=== PATIENT | male | born 1945 | race Caucasian/White ===

== ENCOUNTER 2019-01-31 15:58 | Inpatient (IN) ==
[2019-01-31] MEDS ORDERED: Ondansetron ODT 4 MG TAB.RAPDIS SL PRN (17:22)
[2019-01-31] MEDS ORDERED: Mag Hydrox/Al Hydrox/Simeth 30 ML UDC PO PRN (17:24)
[2019-01-31] MEDS: Budesonide/Formoterol 160/4.5 1 PUFF INH IH PRN (22:19)
[2019-02-01 05:07] LABS: Basophils # 0.1 K/mcL (0.0-0.2); Basophils % 0.6 %; Eosinophils # 0.3 K/mcL (0.0-0.6); Eosinophils % 3.3 %; Hematocrit 34.4 % (37.5-50.1); Immature Granulocytes % 1.3 % (0-4); Lymphocytes # 1.9 K/mcL (0.6-4.6); Lymphocytes % 19.4 %; Mean Corpuscular Hemoglobin 29.6 pg (28.0-33.3); Mean Corpuscular Volume 92.7 fL (83.0-100.0); Monocytes # 1.1 K/mcL (0.0-1.3); Monocytes % 11.2 %; Neutrophils # 6.2 K/mcL (1.6-8.9); Platelet Count 198 K/mcL (140-400); Red Blood Count 3.71 M/mcL (4.19-5.50); Red Cell Distribution Width 15.5 % (11.5-14.5); Segmented Neutrophils % 64.2 %; White Blood Count 9.6 K/mcL (4.3-11.1)
[2019-02-01 05:28] LABS: Alanine Aminotransferase 21 Units/L (7-52); Albumin 2.4 g/dL (3.5-5.7); Albumin/Globulin Ratio 0.9 (1.1-2.2); Alkaline Phosphatase 52 Units/L (34-104); Aspartate Amino Transferase 25 Units/L (13-39); BUN/Creatinine Ratio 29 (6-26); Bilirubin,Total 0.5 mg/dL (0.3-1.0); Blood Urea Nitrogen 23 mg/dL (8-23); Calcium 8.2 mg/dL (8.6-10.3); Carbon Dioxide 27 mEq/L (23-29); Chloride 110 mEq/L (98-107); Globulin 2.7 g/dL (2.4-3.5); Glucose 109 mg/dL (70-105); Osmolality,Calculated 298 (280-300); Potassium 3.7 mEq/L (3.5-5.1); Sodium 142 mEq/L (136-145); Total Protein 5.1 g/dL (6.4-8.9); eGFR For African Americans > 60 (> 60); eGFR For Non-African Americans > 60 (> 60)
[2019-02-01] MEDS: Vitamin B Complex/Vit C/Vit E 1 EACH TABLET PO SCH (08:51)
[2019-02-01] MEDS: Diltiazem CD (24hr) 180 MG CAPSULE PO SCH (08:51)
[2019-02-01] MEDS: Aspirin Enteric Coated 81 MG Tablet PO SCH (08:51)
[2019-02-01] MEDS: Cholecalciferol (D-3) 1,000 UNIT (25MCG) TABLET PO SCH (08:52)
[2019-02-01] MEDS: Budesonide/Formoterol 160/4.5 1 PUFF INH IH PRN ×2 (09:04→20:46)
[2019-02-01] MEDS: *HR* LORazepam 0.5 MG TABLET PO PRN (09:07)
[2019-02-01] MEDS: *HR* Enoxaparin 40 MG/0.4 ML SYRINGE SQ SCH (15:52)
[2019-02-02] MEDS: *HR* Enoxaparin 40 MG/0.4 ML SYRINGE SQ SCH (06:47)
[2019-02-02] MEDS: *HR* LORazepam 0.5 MG TABLET PO PRN (06:47)
[2019-02-02] MEDS: Diltiazem CD (24hr) 180 MG CAPSULE PO SCH (09:24)
[2019-02-02] MEDS: Vitamin B Complex/Vit C/Vit E 1 EACH TABLET PO SCH (09:24)
[2019-02-02] MEDS: Aspirin Enteric Coated 81 MG Tablet PO SCH (09:24)
[2019-02-02] MEDS: Cholecalciferol (D-3) 1,000 UNIT (25MCG) TABLET PO SCH (09:24)
[2019-02-02] MEDS ORDERED: *HR* LORazepam 0.5 MG TABLET PO PRN (12:01)
[2019-02-02] MEDS: Budesonide/Formoterol 160/4.5 1 PUFF INH IH PRN (18:25)
[2019-02-03] MEDS: *HR* Enoxaparin 40 MG/0.4 ML SYRINGE SQ SCH (06:09)
[2019-02-03] MEDS: Cholecalciferol (D-3) 1,000 UNIT (25MCG) TABLET PO SCH (09:24)
[2019-02-03] MEDS: Aspirin Enteric Coated 81 MG Tablet PO SCH (09:24)
[2019-02-03] MEDS: Diltiazem CD (24hr) 180 MG CAPSULE PO SCH (09:24)
[2019-02-03] MEDS: Vitamin B Complex/Vit C/Vit E 1 EACH TABLET PO SCH (09:24)
[2019-02-03] MEDS: Budesonide/Formoterol 160/4.5 1 PUFF INH IH PRN ×2 (09:29→19:34)
[2019-02-04] MEDS: *HR* Enoxaparin 40 MG/0.4 ML SYRINGE SQ SCH (06:08)
[2019-02-04 08:01] LABS: Hematocrit 31.1 % (37.5-50.1); Hemoglobin 10.3 g/dL (12.9-16.9); Mean Corpuscular HGB Conc 33.1 g/dL (31.6-35.5); Mean Corpuscular Hemoglobin 30.4 pg (28.0-33.3); Mean Corpuscular Volume 91.7 fL (83.0-100.0); Mean Platelet Volume 10.1 fL (9.4-12.4); Platelet Count 296 K/mcL (140-400); Red Blood Count 3.39 M/mcL (4.19-5.50); Red Cell Distribution Width 15.2 % (11.5-14.5); White Blood Count 8.3 K/mcL (4.3-11.1)
[2019-02-04 08:16] LABS: Alanine Aminotransferase 21 Units/L (7-52); Albumin 2.4 g/dL (3.5-5.7); Albumin/Globulin Ratio 0.8 (1.1-2.2); Alkaline Phosphatase 58 Units/L (34-104); Aspartate Amino Transferase 21 Units/L (13-39); BUN/Creatinine Ratio 28 (6-26); Bilirubin,Total 0.3 mg/dL (0.3-1.0); Blood Urea Nitrogen 13 mg/dL (8-23); Calcium 7.7 mg/dL (8.6-10.3); Carbon Dioxide 28 mEq/L (23-29); Chloride 101 mEq/L (98-107); Globulin 3.2 g/dL (2.4-3.5); Glucose 106 mg/dL (70-105); Osmolality,Calculated 281 (280-300); Sodium 135 mEq/L (136-145); Total Protein 5.6 g/dL (6.4-8.9); eGFR For African Americans > 60 (> 60); eGFR For Non-African Americans > 60 (> 60)
[2019-02-04] MEDS: Cholecalciferol (D-3) 1,000 UNIT (25MCG) TABLET PO SCH (08:48)
[2019-02-04] MEDS: Diltiazem CD (24hr) 180 MG CAPSULE PO SCH (08:48)
[2019-02-04] MEDS: Vitamin B Complex/Vit C/Vit E 1 EACH TABLET PO SCH (08:48)
[2019-02-04] MEDS: Aspirin Enteric Coated 81 MG Tablet PO SCH (08:48)
[2019-02-04] MEDS: Budesonide/Formoterol 160/4.5 1 PUFF INH IH PRN ×2 (09:02→20:04)
[2019-02-05] MEDS: *HR* Enoxaparin 40 MG/0.4 ML SYRINGE SQ SCH (06:41)
[2019-02-05] MEDS: Diltiazem CD (24hr) 180 MG CAPSULE PO SCH (08:20)
[2019-02-05] MEDS: Aspirin Enteric Coated 81 MG Tablet PO SCH (08:20)
[2019-02-05] MEDS: Cholecalciferol (D-3) 1,000 UNIT (25MCG) TABLET PO SCH (08:20)
[2019-02-05] MEDS: Vitamin B Complex/Vit C/Vit E 1 EACH TABLET PO SCH (08:20)
[2019-02-05] MEDS: Budesonide/Formoterol 160/4.5 1 PUFF INH IH PRN ×3 (08:22→20:20)
[2019-02-05] MEDS: Acetaminophen 325 MG TABLET PO PRN (12:38)
[2019-02-06] MEDS: *HR* Enoxaparin 40 MG/0.4 ML SYRINGE SQ SCH (06:27)
[2019-02-06] MEDS: Diltiazem CD (24hr) 180 MG CAPSULE PO SCH (09:13)
[2019-02-06] MEDS: Aspirin Enteric Coated 81 MG Tablet PO SCH (09:13)
[2019-02-06] MEDS: Vitamin B Complex/Vit C/Vit E 1 EACH TABLET PO SCH (09:13)
[2019-02-06] MEDS: Cholecalciferol (D-3) 1,000 UNIT (25MCG) TABLET PO SCH (09:14)
[2019-02-06] MEDS: Budesonide/Formoterol 160/4.5 1 PUFF INH IH PRN (11:23)
[2019-02-07] MEDS: *HR* Enoxaparin 40 MG/0.4 ML SYRINGE SQ SCH (05:28)
[2019-02-07] MEDS: Vitamin B Complex/Vit C/Vit E 1 EACH TABLET PO SCH (08:12)
[2019-02-07] MEDS: Diltiazem CD (24hr) 180 MG CAPSULE PO SCH (08:12)
[2019-02-07] MEDS: Cholecalciferol (D-3) 1,000 UNIT (25MCG) TABLET PO SCH (08:13)
[2019-02-07] MEDS: Aspirin Enteric Coated 81 MG Tablet PO SCH (08:13)
[2019-02-07] MEDS: Ipratropium/Albuterol Neb 3 ML IH SCH (21:25)
[2019-02-07] MEDS: Sucralfate 1 GM TABLET PO SCH (21:26)
[2019-02-07] MEDS: Famotidine 20 MG TABLET PO SCH (21:26)
[2019-02-07] MEDS: Acetaminophen 325 MG TABLET PO PRN (21:26)
[2019-02-08 00:46] LABS: Bilirubin,Urine Negative (Negative); Blood,Urine Trace-lysed (Negative); Clarity,Urine Clear (Clear); Color,Urine Yellow (Yellow); Glucose,Urine (UA) Normal (Normal); Ketones,Urine Negative (Negative); Leukocyte Esterase,Urine Negative (Negative); Nitrite,Urine Negative (Negative); PH,Urine 6.5 pH Units (5.0-8.0); Protein,Urine Negative (Neg-Trace); Urobilinogen,Urine Normal (Normal)
[2019-02-08 01:27] LABS: Bacteria,Urine Few per hpf (None-Few); RBC,Urine 0-3 per hpf (0-3); Squamous Epithelial Cell,Urine Few per lpf (None-Few); WBC,Urine 0-3 per hpf (0-3)
[2019-02-08] MEDS: *HR* Enoxaparin 40 MG/0.4 ML SYRINGE SQ SCH (05:12)
[2019-02-08] MEDS: Acetaminophen 325 MG TABLET PO PRN ×2 (05:12→21:28)
[2019-02-08 05:16] LABS: Hematocrit 31.6 % (37.5-50.1); Hemoglobin 10.5 g/dL (12.9-16.9); Mean Corpuscular HGB Conc 33.2 g/dL (31.6-35.5); Mean Corpuscular Hemoglobin 30.4 pg (28.0-33.3); Mean Corpuscular Volume 91.6 fL (83.0-100.0); Platelet Count 421 K/mcL (140-400); Red Blood Count 3.45 M/mcL (4.19-5.50); White Blood Count 7.5 K/mcL (4.3-11.1)
[2019-02-08 05:34] LABS: BUN/Creatinine Ratio 24 (6-26); Blood Urea Nitrogen 11 mg/dL (8-23); Calcium 8.5 mg/dL (8.6-10.3); Carbon Dioxide 31 mEq/L (23-29); Chloride 102 mEq/L (98-107); Glucose 91 mg/dL (70-105); Osmolality,Calculated 285 (280-300); Potassium 3.8 mEq/L (3.5-5.1); Sodium 138 mEq/L (136-145); eGFR For African Americans > 60 (> 60); eGFR For Non-African Americans > 60 (> 60)
[2019-02-08] MEDS: Diltiazem CD (24hr) 180 MG CAPSULE PO SCH (09:01)
[2019-02-08] MEDS: Cholecalciferol (D-3) 1,000 UNIT (25MCG) TABLET PO SCH (09:01)
[2019-02-08] MEDS: Sucralfate 1 GM TABLET PO SCH ×4 (09:01→21:28)
[2019-02-08] MEDS: Vitamin B Complex/Vit C/Vit E 1 EACH TABLET PO SCH (09:01)
[2019-02-08] MEDS: Famotidine 20 MG TABLET PO SCH ×2 (09:02→21:28)
[2019-02-08] MEDS: Aspirin Enteric Coated 81 MG Tablet PO SCH (09:02)
[2019-02-08] MEDS: Ipratropium/Albuterol Neb 3 ML IH SCH ×2 (09:26→21:28)
[2019-02-08 09:30] LABS: % Iron Saturation 13 % (20-55); Iron 29 mcg/dL (65-175); Transferrin 164 mg/dL (203-362)
[2019-02-08] MEDS: Budesonide/Formoterol 160/4.5 1 PUFF INH IH PRN (21:27)
[2019-02-09] MEDS: Sucralfate 1 GM TABLET PO SCH ×4 (06:09→21:14)
[2019-02-09] MEDS: Acetaminophen 325 MG TABLET PO PRN (06:09)
[2019-02-09] MEDS: *HR* Enoxaparin 40 MG/0.4 ML SYRINGE SQ SCH (06:09)
[2019-02-09] MEDS: Vitamin B Complex/Vit C/Vit E 1 EACH TABLET PO SCH (08:38)
[2019-02-09] MEDS: Diltiazem CD (24hr) 180 MG CAPSULE PO SCH (08:38)
[2019-02-09] MEDS: Aspirin Enteric Coated 81 MG Tablet PO SCH (08:39)
[2019-02-09] MEDS: Famotidine 20 MG TABLET PO SCH ×2 (08:39→21:13)
[2019-02-09] MEDS: Cholecalciferol (D-3) 1,000 UNIT (25MCG) TABLET PO SCH (08:39)
[2019-02-09] MEDS: Budesonide/Formoterol 160/4.5 1 PUFF INH IH PRN (11:21)
[2019-02-09] MEDS: Ipratropium/Albuterol Neb 3 ML IH SCH ×2 (11:22→22:26)
[2019-02-09] MEDS ORDERED: Furosemide 40 MG in 0.9 % Sodium Chloride 50 ML IV ONE (17:36)
[2019-02-09] MEDS ORDERED: Furosemide 40 MG/4 ML VIAL IVP ONE (18:15)
[2019-02-10] MEDS: *HR* Enoxaparin 40 MG/0.4 ML SYRINGE SQ SCH (06:34)
[2019-02-10] MEDS: Sucralfate 1 GM TABLET PO SCH ×3 (06:35→22:20)
[2019-02-10] MEDS: Aspirin Enteric Coated 81 MG Tablet PO SCH (08:30)
[2019-02-10] MEDS: Acetaminophen 325 MG TABLET PO PRN ×2 (08:30→22:20)
[2019-02-10] MEDS: Diltiazem CD (24hr) 180 MG CAPSULE PO SCH (08:31)
[2019-02-10] MEDS: Famotidine 20 MG TABLET PO SCH ×2 (08:31→22:20)
[2019-02-10] MEDS: Vitamin B Complex/Vit C/Vit E 1 EACH TABLET PO SCH (08:31)
[2019-02-10] MEDS: Cholecalciferol (D-3) 1,000 UNIT (25MCG) TABLET PO SCH (08:31)
[2019-02-10] MEDS: Budesonide/Formoterol 160/4.5 1 PUFF INH IH PRN ×2 (11:56→22:18)
[2019-02-10] MEDS: Ipratropium/Albuterol Neb 3 ML IH SCH ×2 (11:56→22:06)
[2019-02-11] MEDS: Sucralfate 1 GM TABLET PO SCH ×5 (04:50→21:08)
[2019-02-11] MEDS: *HR* Enoxaparin 40 MG/0.4 ML SYRINGE SQ SCH (04:50)
[2019-02-11 06:51] LABS: BUN/Creatinine Ratio 19 (6-26); Blood Urea Nitrogen 9 mg/dL (8-23); Calcium 8.6 mg/dL (8.6-10.3); Carbon Dioxide 32 mEq/L (23-29); Chloride 102 mEq/L (98-107); Glucose 100 mg/dL (70-105); Osmolality,Calculated 287 (280-300); Potassium 4.1 mEq/L (3.5-5.1); Sodium 139 mEq/L (136-145); eGFR For African Americans > 60 (> 60); eGFR For Non-African Americans > 60 (> 60)
[2019-02-11] MEDS ORDERED: Iron Sucrose Complex 200 MG in 0.9 % Sodium Chloride 100 ML IVPB SCH (09:00)
[2019-02-11] MEDS: Vitamin B Complex/Vit C/Vit E 1 EACH TABLET PO SCH (10:06)
[2019-02-11] MEDS: Aspirin Enteric Coated 81 MG Tablet PO SCH (10:10)
[2019-02-11] MEDS: Famotidine 20 MG TABLET PO SCH ×2 (10:11→21:08)
[2019-02-11] MEDS: Cholecalciferol (D-3) 1,000 UNIT (25MCG) TABLET PO SCH (10:11)
[2019-02-11] MEDS: Cyanocobalamin (B-12) 1,000 MCG/ML VIAL SQ SCH (10:12)
[2019-02-11] MEDS: Diltiazem CD (24hr) 180 MG CAPSULE PO SCH (10:12)
[2019-02-11] MEDS: Ascorbic Acid 500 MG TABLET PO SCH ×2 (10:12→21:08)
[2019-02-11] MEDS: Budesonide/Formoterol 160/4.5 1 PUFF INH IH PRN (11:22)
[2019-02-11] MEDS: Ipratropium/Albuterol Neb 3 ML IH SCH ×2 (11:22→22:27)
[2019-02-11] MEDS: cephALEXin 500 MG CAPSULE PO SCH ×3 (13:32→21:08)
[2019-02-11] MEDS: Iron Sucrose Complex 200 MG in 0.9 % Sodium Chloride 100 ML IVPB SCH (21:09)
[2019-02-11] MEDS: Acetaminophen 325 MG TABLET PO PRN (21:09)
[2019-02-12] MEDS: Acetaminophen 325 MG TABLET PO PRN (05:41)
[2019-02-12] MEDS: Sucralfate 1 GM TABLET PO SCH ×4 (05:41→20:52)
[2019-02-12] MEDS: *HR* Enoxaparin 40 MG/0.4 ML SYRINGE SQ SCH (05:41)
[2019-02-12] MEDS: cephALEXin 500 MG CAPSULE PO SCH ×4 (08:49→20:53)
[2019-02-12] MEDS: Famotidine 20 MG TABLET PO SCH ×2 (08:49→20:53)
[2019-02-12] MEDS: Cholecalciferol (D-3) 1,000 UNIT (25MCG) TABLET PO SCH (08:49)
[2019-02-12] MEDS: Cyanocobalamin (B-12) 1,000 MCG/ML VIAL SQ SCH (08:50)
[2019-02-12] MEDS: Vitamin B Complex/Vit C/Vit E 1 EACH TABLET PO SCH (08:50)
[2019-02-12] MEDS: Aspirin Enteric Coated 81 MG Tablet PO SCH (08:50)
[2019-02-12] MEDS: Diltiazem CD (24hr) 180 MG CAPSULE PO SCH (08:50)
[2019-02-12] MEDS: Ascorbic Acid 500 MG TABLET PO SCH ×2 (08:50→20:53)
[2019-02-12] MEDS: Ipratropium/Albuterol Neb 3 ML IH SCH ×2 (09:07→20:54)
[2019-02-12] MEDS: Budesonide/Formoterol 160/4.5 1 PUFF INH IH PRN (09:09)
[2019-02-12] MEDS: Methyl Salicylate/Menthol 57 APPL/57 GM TUBE TP SCH ×2 (16:13→20:53)
[2019-02-12] MEDS: Lactobacillus 1 EACH CAP.SPRINK PO SCH (20:52)
[2019-02-12] MEDS: Mirtazapine 15 MG TABLET PO SCH (20:53)
[2019-02-12] MEDS: Iron Sucrose Complex 200 MG in 0.9 % Sodium Chloride 100 ML IVPB SCH (20:53)
[2019-02-12] MEDS: Nystatin Ointment 15 GM TUBE TP SCH (20:54)
[2019-02-13] MEDS: *HR* Enoxaparin 40 MG/0.4 ML SYRINGE SQ SCH (05:16)
[2019-02-13] MEDS: Sucralfate 1 GM TABLET PO SCH ×4 (05:21→20:13)
[2019-02-13] MEDS: Famotidine 20 MG TABLET PO SCH ×2 (08:39→20:14)
[2019-02-13] MEDS: Aspirin Enteric Coated 81 MG Tablet PO SCH (08:39)
[2019-02-13] MEDS: cephALEXin 500 MG CAPSULE PO SCH ×4 (08:39→20:14)
[2019-02-13] MEDS: Vitamin B Complex/Vit C/Vit E 1 EACH TABLET PO SCH (08:39)
[2019-02-13] MEDS: Ascorbic Acid 500 MG TABLET PO SCH ×2 (08:39→20:13)
[2019-02-13] MEDS: Lactobacillus 1 EACH CAP.SPRINK PO SCH ×2 (08:39→20:14)
[2019-02-13] MEDS: Diltiazem CD (24hr) 180 MG CAPSULE PO SCH (08:39)
[2019-02-13] MEDS: Cholecalciferol (D-3) 1,000 UNIT (25MCG) TABLET PO SCH (08:39)
[2019-02-13] MEDS: Cyanocobalamin (B-12) 1,000 MCG/ML VIAL SQ SCH (08:40)
[2019-02-13] MEDS: Nystatin Ointment 15 GM TUBE TP SCH ×3 (08:40→21:29)
[2019-02-13] MEDS: Methyl Salicylate/Menthol 57 APPL/57 GM TUBE TP SCH ×3 (08:40→21:28)
[2019-02-13] MEDS: Ipratropium/Albuterol Neb 3 ML IH SCH ×2 (09:35→20:46)
[2019-02-13] MEDS: Mirtazapine 15 MG TABLET PO SCH (20:13)
[2019-02-13] MEDS: Acetaminophen 325 MG TABLET PO PRN (20:13)
[2019-02-13] MEDS: Iron Sucrose Complex 200 MG in 0.9 % Sodium Chloride 100 ML IVPB SCH (20:15)
[2019-02-13] MEDS: Budesonide/Formoterol 160/4.5 1 PUFF INH IH PRN (21:26)
[2019-02-14] MEDS: *HR* Enoxaparin 40 MG/0.4 ML SYRINGE SQ SCH (06:13)
[2019-02-14] MEDS: Sucralfate 1 GM TABLET PO SCH ×4 (06:13→20:42)
[2019-02-14] MEDS: Lactobacillus 1 EACH CAP.SPRINK PO SCH ×2 (07:52→20:42)
[2019-02-14] MEDS: Cholecalciferol (D-3) 1,000 UNIT (25MCG) TABLET PO SCH (07:52)
[2019-02-14] MEDS: cephALEXin 500 MG CAPSULE PO SCH ×4 (07:52→20:42)
[2019-02-14] MEDS: Diltiazem CD (24hr) 180 MG CAPSULE PO SCH (07:52)
[2019-02-14] MEDS: Famotidine 20 MG TABLET PO SCH ×2 (07:52→20:41)
[2019-02-14] MEDS: Vitamin B Complex/Vit C/Vit E 1 EACH TABLET PO SCH (07:52)
[2019-02-14] MEDS: Aspirin Enteric Coated 81 MG Tablet PO SCH (07:53)
[2019-02-14] MEDS: Ascorbic Acid 500 MG TABLET PO SCH ×2 (07:53→20:42)
[2019-02-14] MEDS: Cyanocobalamin (B-12) 1,000 MCG/ML VIAL SQ SCH (07:53)
[2019-02-14] MEDS: Nystatin Ointment 15 GM TUBE TP SCH ×2 (07:57→20:44)
[2019-02-14] MEDS: Methyl Salicylate/Menthol 57 APPL/57 GM TUBE TP SCH ×2 (07:57→20:44)
[2019-02-14] MEDS: Budesonide/Formoterol 160/4.5 1 PUFF INH IH PRN ×2 (11:40→20:44)
[2019-02-14] MEDS: Ipratropium/Albuterol Neb 3 ML IH SCH ×2 (11:41→20:51)
[2019-02-14] MEDS: Mirtazapine 15 MG TABLET PO SCH (20:41)
[2019-02-14] MEDS: Iron Sucrose Complex 200 MG in 0.9 % Sodium Chloride 100 ML IVPB SCH (20:43)
[2019-02-15] MEDS: *HR* Enoxaparin 40 MG/0.4 ML SYRINGE SQ SCH (06:20)
[2019-02-15] MEDS: Sucralfate 1 GM TABLET PO SCH ×4 (06:20→20:45)
[2019-02-15] MEDS: Ipratropium/Albuterol Neb 3 ML IH SCH ×2 (08:22→21:39)
[2019-02-15] MEDS: Aspirin Enteric Coated 81 MG Tablet PO SCH (08:48)
[2019-02-15] MEDS: Ascorbic Acid 500 MG TABLET PO SCH ×2 (08:49→20:45)
[2019-02-15] MEDS: Vitamin B Complex/Vit C/Vit E 1 EACH TABLET PO SCH (08:49)
[2019-02-15] MEDS: Lactobacillus 1 EACH CAP.SPRINK PO SCH ×2 (08:49→20:45)
[2019-02-15] MEDS: Diltiazem CD (24hr) 180 MG CAPSULE PO SCH (08:49)
[2019-02-15] MEDS: Cholecalciferol (D-3) 1,000 UNIT (25MCG) TABLET PO SCH (08:49)
[2019-02-15] MEDS: cephALEXin 500 MG CAPSULE PO SCH ×4 (08:49→20:45)
[2019-02-15] MEDS: Famotidine 20 MG TABLET PO SCH ×2 (08:49→20:45)
[2019-02-15] MEDS: Cyanocobalamin (B-12) 1,000 MCG/ML VIAL SQ SCH (08:58)
[2019-02-15] MEDS: Nystatin Ointment 15 GM TUBE TP SCH ×2 (09:01→20:50)
[2019-02-15] MEDS: Methyl Salicylate/Menthol 57 APPL/57 GM TUBE TP SCH ×2 (09:01→20:50)
[2019-02-15] MEDS: Acetaminophen 325 MG TABLET PO PRN (11:07)
[2019-02-15] MEDS: Iron Sucrose Complex 200 MG in 0.9 % Sodium Chloride 100 ML IVPB SCH (20:50)
[2019-02-15] MEDS: Mirtazapine 15 MG TABLET PO SCH (20:50)
[2019-02-15] MEDS: Budesonide/Formoterol 160/4.5 1 PUFF INH IH PRN (21:39)
[2019-02-16] MEDS: Sucralfate 1 GM TABLET PO SCH ×4 (06:48→20:43)
[2019-02-16] MEDS: *HR* Enoxaparin 40 MG/0.4 ML SYRINGE SQ SCH (06:48)
[2019-02-16] MEDS: Cyanocobalamin (B-12) 1,000 MCG/ML VIAL SQ SCH (08:38)
[2019-02-16] MEDS: Aspirin Enteric Coated 81 MG Tablet PO SCH (08:40)
[2019-02-16] MEDS: Diltiazem CD (24hr) 180 MG CAPSULE PO SCH (08:41)
[2019-02-16] MEDS: Lactobacillus 1 EACH CAP.SPRINK PO SCH ×2 (08:42→20:41)
[2019-02-16] MEDS: cephALEXin 500 MG CAPSULE PO SCH ×4 (08:42→20:44)
[2019-02-16] MEDS: Vitamin B Complex/Vit C/Vit E 1 EACH TABLET PO SCH (08:42)
[2019-02-16] MEDS: Cholecalciferol (D-3) 1,000 UNIT (25MCG) TABLET PO SCH (08:42)
[2019-02-16] MEDS: Ascorbic Acid 500 MG TABLET PO SCH ×2 (08:42→20:43)
[2019-02-16] MEDS: Famotidine 20 MG TABLET PO SCH ×2 (08:42→20:45)
[2019-02-16] MEDS: Nystatin Ointment 15 GM TUBE TP SCH ×2 (08:46→20:50)
[2019-02-16] MEDS: Methyl Salicylate/Menthol 57 APPL/57 GM TUBE TP SCH ×2 (08:47→20:58)
[2019-02-16] MEDS: Budesonide/Formoterol 160/4.5 1 PUFF INH IH PRN (09:47)
[2019-02-16] MEDS: Ipratropium/Albuterol Neb 3 ML IH SCH (09:50)
[2019-02-16 11:10] LABS: Hematocrit 36.2 % (37.5-50.1); Hemoglobin 11.8 g/dL (12.9-16.9); Mean Corpuscular HGB Conc 32.6 g/dL (31.6-35.5); Mean Corpuscular Hemoglobin 30.3 pg (28.0-33.3); Mean Corpuscular Volume 92.8 fL (83.0-100.0); Mean Platelet Volume 8.4 fL (9.4-12.4); Platelet Count 344 K/mcL (140-400); Red Cell Distribution Width 15.4 % (11.5-14.5); White Blood Count 8.4 K/mcL (4.3-11.1)
[2019-02-16 11:25] LABS: BUN/Creatinine Ratio 20 (6-26); Blood Urea Nitrogen 12 mg/dL (8-23); Calcium 9.1 mg/dL (8.6-10.3); Carbon Dioxide 29 mEq/L (23-29); Chloride 103 mEq/L (98-107); Glucose 118 mg/dL (70-105); Osmolality,Calculated 291 (280-300); Potassium 3.9 mEq/L (3.5-5.1); Sodium 140 mEq/L (136-145); Uric Acid 5.7 mg/dL (2.3-7.6); eGFR For African Americans > 60 (> 60); eGFR For Non-African Americans > 60 (> 60)
[2019-02-16] MEDS: *HR* LORazepam 0.5 MG TABLET PO PRN (16:23)
[2019-02-16 18:39] LABS: C-Reactive Protein 28 mg/L (Less than 10)
[2019-02-16] MEDS: Mirtazapine 15 MG TABLET PO SCH (20:42)
[2019-02-16] MEDS: Budesonide/Formoterol 160/4.5 1 PUFF INH IH SCH (20:47)
[2019-02-16] MEDS: Iron Sucrose Complex 200 MG in 0.9 % Sodium Chloride 100 ML IVPB SCH (20:55)
[2019-02-17] MEDS: *HR* Enoxaparin 40 MG/0.4 ML SYRINGE SQ SCH (05:45)
[2019-02-17] MEDS: Ipratropium/Albuterol Neb 3 ML IH PRN (09:18)
[2019-02-17] MEDS: Budesonide/Formoterol 160/4.5 1 PUFF INH IH SCH ×2 (09:18→20:23)
[2019-02-17] MEDS: Vitamin B Complex/Vit C/Vit E 1 EACH TABLET PO SCH (10:09)
[2019-02-17] MEDS: Diltiazem CD (24hr) 180 MG CAPSULE PO SCH (10:10)
[2019-02-17] MEDS: Cholecalciferol (D-3) 1,000 UNIT (25MCG) TABLET PO SCH (10:10)
[2019-02-17] MEDS: cephALEXin 500 MG CAPSULE PO SCH ×4 (10:10→20:20)
[2019-02-17] MEDS: Aspirin Enteric Coated 81 MG Tablet PO SCH (10:10)
[2019-02-17] MEDS: Lactobacillus 1 EACH CAP.SPRINK PO SCH ×2 (10:10→20:20)
[2019-02-17] MEDS: Ascorbic Acid 500 MG TABLET PO SCH ×2 (10:10→20:22)
[2019-02-17] MEDS: Famotidine 20 MG TABLET PO SCH ×2 (10:10→20:21)
[2019-02-17] MEDS: Cyanocobalamin (B-12) 1,000 MCG/ML VIAL SQ SCH (10:11)
[2019-02-17] MEDS: Sucralfate 1 GM TABLET PO SCH (10:11)
[2019-02-17] MEDS: Nystatin Ointment 15 GM TUBE TP SCH ×2 (10:18→20:21)
[2019-02-17] MEDS: Methyl Salicylate/Menthol 57 APPL/57 GM TUBE TP SCH ×2 (10:18→20:19)
[2019-02-17] MEDS: Iron Sucrose Complex 200 MG in 0.9 % Sodium Chloride 100 ML IVPB SCH (20:18)
[2019-02-17] MEDS: Mirtazapine 15 MG TABLET PO SCH (20:21)
[2019-02-18] MEDS: *HR* Enoxaparin 40 MG/0.4 ML SYRINGE SQ SCH (05:04)
[2019-02-18] MEDS: Budesonide/Formoterol 160/4.5 1 PUFF INH IH SCH ×2 (09:01→22:09)
[2019-02-18] MEDS ORDERED: 0.9 % Sodium Chloride 500 ML IVC ONE (09:13)
[2019-02-18] MEDS ORDERED: 0.9 % Sodium Chloride 500 ML ONE (09:17)
[2019-02-18] MEDS: Famotidine 20 MG TABLET PO SCH ×2 (09:24→21:37)
[2019-02-18] MEDS: Ascorbic Acid 500 MG TABLET PO SCH ×2 (09:24→21:35)
[2019-02-18] MEDS: Diltiazem CD (24hr) 180 MG CAPSULE PO SCH (09:24)
[2019-02-18] MEDS: Vitamin B Complex/Vit C/Vit E 1 EACH TABLET PO SCH (09:24)
[2019-02-18] MEDS: Cyanocobalamin (B-12) 1,000 MCG/ML VIAL SQ SCH (09:25)
[2019-02-18] MEDS: Aspirin Enteric Coated 81 MG Tablet PO SCH (09:25)
[2019-02-18] MEDS: Cholecalciferol (D-3) 1,000 UNIT (25MCG) TABLET PO SCH (09:25)
[2019-02-18] MEDS: Lactobacillus 1 EACH CAP.SPRINK PO SCH ×2 (09:26→21:36)
[2019-02-18] MEDS: Methyl Salicylate/Menthol 57 APPL/57 GM TUBE TP SCH ×2 (09:26→21:44)
[2019-02-18] MEDS: Nystatin Ointment 15 GM TUBE TP SCH ×2 (09:26→21:44)
[2019-02-18] MEDS: cephALEXin 500 MG CAPSULE PO SCH ×2 (09:26→13:43)
[2019-02-18] MEDS: Mirtazapine 15 MG TABLET PO SCH (21:36)
[2019-02-18] MEDS: Ipratropium/Albuterol Neb 3 ML IH PRN (22:09)
[2019-02-19] MEDS: *HR* Enoxaparin 40 MG/0.4 ML SYRINGE SQ SCH (04:15)
[2019-02-19] MEDS: Cholecalciferol (D-3) 1,000 UNIT (25MCG) TABLET PO SCH (08:46)
[2019-02-19] MEDS: Diltiazem CD (24hr) 180 MG CAPSULE PO SCH (08:46)
[2019-02-19] MEDS: Famotidine 20 MG TABLET PO SCH ×2 (08:46→21:36)
[2019-02-19] MEDS: Aspirin Enteric Coated 81 MG Tablet PO SCH (08:47)
[2019-02-19] MEDS: Vitamin B Complex/Vit C/Vit E 1 EACH TABLET PO SCH (08:47)
[2019-02-19] MEDS: Ascorbic Acid 500 MG TABLET PO SCH ×2 (08:47→21:36)
[2019-02-19] MEDS: Lactobacillus 1 EACH CAP.SPRINK PO SCH ×2 (08:47→21:35)
[2019-02-19] MEDS: Nystatin Ointment 15 GM TUBE TP SCH ×2 (08:49→21:38)
[2019-02-19] MEDS: Methyl Salicylate/Menthol 57 APPL/57 GM TUBE TP SCH ×2 (08:49→21:38)
[2019-02-19] MEDS: Budesonide/Formoterol 160/4.5 1 PUFF INH IH SCH ×2 (11:11→22:17)
[2019-02-19] MEDS: Mirtazapine 15 MG TABLET PO SCH (21:38)
[2019-02-19] MEDS: Ipratropium/Albuterol Neb 3 ML IH PRN (22:14)
[2019-02-20] MEDS: *HR* Enoxaparin 40 MG/0.4 ML SYRINGE SQ SCH (04:42)
[2019-02-20 06:01] LABS: Alanine Aminotransferase 34 Units/L (7-52); Albumin/Globulin Ratio 0.9 (1.1-2.2); Alkaline Phosphatase 63 Units/L (34-104); Aspartate Amino Transferase 24 Units/L (13-39); BUN/Creatinine Ratio 17 (6-26); Bilirubin,Total 0.3 mg/dL (0.3-1.0); Blood Urea Nitrogen 10 mg/dL (8-23); Calcium 8.9 mg/dL (8.6-10.3); Carbon Dioxide 31 mEq/L (23-29); Chloride 104 mEq/L (98-107); Globulin 3.2 g/dL (2.4-3.5); Glucose 95 mg/dL (70-105); Osmolality,Calculated 289 (280-300); Potassium 3.7 mEq/L (3.5-5.1); Sodium 140 mEq/L (136-145); Total Protein 6.2 g/dL (6.4-8.9); eGFR For African Americans > 60 (> 60); eGFR For Non-African Americans > 60 (> 60)
[2019-02-20] MEDS: Ascorbic Acid 500 MG TABLET PO SCH ×2 (07:53→21:00)
[2019-02-20] MEDS: Famotidine 20 MG TABLET PO SCH ×2 (07:53→21:01)
[2019-02-20] MEDS: Lactobacillus 1 EACH CAP.SPRINK PO SCH ×2 (07:53→21:00)
[2019-02-20] MEDS: Aspirin Enteric Coated 81 MG Tablet PO SCH (07:53)
[2019-02-20] MEDS: Diltiazem CD (24hr) 180 MG CAPSULE PO SCH (07:54)
[2019-02-20] MEDS: Cholecalciferol (D-3) 1,000 UNIT (25MCG) TABLET PO SCH (07:54)
[2019-02-20] MEDS: Vitamin B Complex/Vit C/Vit E 1 EACH TABLET PO SCH (07:54)
[2019-02-20] MEDS: Methyl Salicylate/Menthol 57 APPL/57 GM TUBE TP SCH ×2 (10:00→21:01)
[2019-02-20] MEDS: Nystatin Ointment 15 GM TUBE TP SCH ×2 (10:01→20:59)
[2019-02-20] MEDS: Budesonide/Formoterol 160/4.5 1 PUFF INH IH SCH ×2 (11:35→21:43)
[2019-02-20] MEDS: Mirtazapine 15 MG TABLET PO SCH (21:00)
[2019-02-20] MEDS: Ipratropium/Albuterol Neb 3 ML IH PRN (21:43)
[2019-02-21] MEDS: *HR* Enoxaparin 40 MG/0.4 ML SYRINGE SQ SCH (05:53)
[2019-02-21] MEDS: Aspirin Enteric Coated 81 MG Tablet PO SCH (07:56)
[2019-02-21] MEDS: Famotidine 20 MG TABLET PO SCH ×2 (07:57→21:42)
[2019-02-21] MEDS: Cholecalciferol (D-3) 1,000 UNIT (25MCG) TABLET PO SCH (07:57)
[2019-02-21] MEDS: Lactobacillus 1 EACH CAP.SPRINK PO SCH ×2 (07:57→21:41)
[2019-02-21] MEDS: Ascorbic Acid 500 MG TABLET PO SCH ×2 (07:57→21:43)
[2019-02-21] MEDS: Diltiazem CD (24hr) 180 MG CAPSULE PO SCH (07:57)
[2019-02-21] MEDS: Vitamin B Complex/Vit C/Vit E 1 EACH TABLET PO SCH (07:57)
[2019-02-21] MEDS: Methyl Salicylate/Menthol 57 APPL/57 GM TUBE TP SCH ×2 (08:01→21:50)
[2019-02-21] MEDS: Nystatin Ointment 15 GM TUBE TP SCH ×2 (08:01→21:47)
[2019-02-21] MEDS: Budesonide/Formoterol 160/4.5 1 PUFF INH IH SCH ×2 (10:08→21:53)
[2019-02-21] MEDS: Mirtazapine 15 MG TABLET PO SCH (21:42)
[2019-02-21] MEDS: Acetaminophen 325 MG TABLET PO PRN (21:58)
[2019-02-21] MEDS: Ipratropium/Albuterol Neb 3 ML IH PRN (22:09)
[2019-02-22] MEDS: *HR* Enoxaparin 40 MG/0.4 ML SYRINGE SQ SCH (05:32)
[2019-02-22] MEDS: Cholecalciferol (D-3) 1,000 UNIT (25MCG) TABLET PO SCH (08:29)
[2019-02-22] MEDS: Aspirin Enteric Coated 81 MG Tablet PO SCH (08:29)
[2019-02-22] MEDS: Lactobacillus 1 EACH CAP.SPRINK PO SCH ×2 (08:29→21:57)
[2019-02-22] MEDS: Diltiazem CD (24hr) 180 MG CAPSULE PO SCH (08:29)
[2019-02-22] MEDS: Ascorbic Acid 500 MG TABLET PO SCH ×2 (08:29→22:00)
[2019-02-22] MEDS: Vitamin B Complex/Vit C/Vit E 1 EACH TABLET PO SCH (08:30)
[2019-02-22] MEDS: Famotidine 20 MG TABLET PO SCH ×2 (08:30→22:00)
[2019-02-22] MEDS: Nystatin Ointment 15 GM TUBE TP SCH ×2 (08:31→22:01)
[2019-02-22] MEDS: Methyl Salicylate/Menthol 57 APPL/57 GM TUBE TP SCH ×2 (08:32→22:02)
[2019-02-22] MEDS: Acetaminophen 325 MG TABLET PO PRN (11:09)
[2019-02-22] MEDS: Budesonide/Formoterol 160/4.5 1 PUFF INH IH SCH ×2 (11:41→22:02)
[2019-02-22] MEDS: Mirtazapine 15 MG TABLET PO SCH (22:00)
[2019-02-22] MEDS: *HR* LORazepam 0.5 MG TABLET PO PRN (22:01)
[2019-02-22] MEDS: Ipratropium/Albuterol Neb 3 ML IH PRN (22:11)
[2019-02-23] MEDS: *HR* Enoxaparin 40 MG/0.4 ML SYRINGE SQ SCH (05:06)
[2019-02-23] MEDS: Lactobacillus 1 EACH CAP.SPRINK PO SCH ×2 (09:30→20:34)
[2019-02-23] MEDS: Methyl Salicylate/Menthol 57 APPL/57 GM TUBE TP SCH ×2 (09:31→20:36)
[2019-02-23] MEDS: Vitamin B Complex/Vit C/Vit E 1 EACH TABLET PO SCH (09:31)
[2019-02-23] MEDS: Cholecalciferol (D-3) 1,000 UNIT (25MCG) TABLET PO SCH (09:31)
[2019-02-23] MEDS: Famotidine 20 MG TABLET PO SCH ×2 (09:31→20:34)
[2019-02-23] MEDS: Diltiazem CD (24hr) 180 MG CAPSULE PO SCH (09:31)
[2019-02-23] MEDS: Ascorbic Acid 500 MG TABLET PO SCH ×2 (09:31→20:34)
[2019-02-23] MEDS: Aspirin Enteric Coated 81 MG Tablet PO SCH (09:31)
[2019-02-23] MEDS: Nystatin Ointment 15 GM TUBE TP SCH ×2 (09:32→20:35)
[2019-02-23] MEDS: Budesonide/Formoterol 160/4.5 1 PUFF INH IH SCH ×2 (10:23→20:36)
[2019-02-23] MEDS: Mirtazapine 15 MG TABLET PO SCH (20:34)
[2019-02-23] MEDS: Ipratropium/Albuterol Neb 3 ML IH PRN (20:45)
[2019-02-24] MEDS: *HR* Enoxaparin 40 MG/0.4 ML SYRINGE SQ SCH (05:46)
[2019-02-24] MEDS: Aspirin Enteric Coated 81 MG Tablet PO SCH (08:48)
[2019-02-24] MEDS: Famotidine 20 MG TABLET PO SCH ×2 (08:48→20:35)
[2019-02-24] MEDS: Diltiazem CD (24hr) 180 MG CAPSULE PO SCH (08:49)
[2019-02-24] MEDS: Vitamin B Complex/Vit C/Vit E 1 EACH TABLET PO SCH (08:49)
[2019-02-24] MEDS: Cholecalciferol (D-3) 1,000 UNIT (25MCG) TABLET PO SCH (08:49)
[2019-02-24] MEDS: Lactobacillus 1 EACH CAP.SPRINK PO SCH ×2 (08:49→20:35)
[2019-02-24] MEDS: Methyl Salicylate/Menthol 57 APPL/57 GM TUBE TP SCH ×2 (08:49→20:36)
[2019-02-24] MEDS: Ascorbic Acid 500 MG TABLET PO SCH ×2 (08:50→20:35)
[2019-02-24] MEDS: Nystatin Ointment 15 GM TUBE TP SCH ×2 (08:50→20:36)
[2019-02-24] MEDS: Budesonide/Formoterol 160/4.5 1 PUFF INH IH SCH ×2 (11:16→20:37)
[2019-02-24] MEDS: Mirtazapine 15 MG TABLET PO SCH (20:35)
[2019-02-24] MEDS: Ipratropium/Albuterol Neb 3 ML IH PRN (20:38)
[2019-02-25] MEDS: *HR* Enoxaparin 40 MG/0.4 ML SYRINGE SQ SCH (05:32)
[2019-02-25] MEDS: Cholecalciferol (D-3) 1,000 UNIT (25MCG) TABLET PO SCH (08:55)
[2019-02-25] MEDS: Diltiazem CD (24hr) 180 MG CAPSULE PO SCH (08:55)
[2019-02-25] MEDS: Lactobacillus 1 EACH CAP.SPRINK PO SCH ×2 (08:55→20:44)
[2019-02-25] MEDS: Vitamin B Complex/Vit C/Vit E 1 EACH TABLET PO SCH (08:56)
[2019-02-25] MEDS: Methyl Salicylate/Menthol 57 APPL/57 GM TUBE TP SCH ×2 (08:56→20:42)
[2019-02-25] MEDS: Aspirin Enteric Coated 81 MG Tablet PO SCH (08:56)
[2019-02-25] MEDS: Famotidine 20 MG TABLET PO SCH ×2 (08:56→20:43)
[2019-02-25] MEDS: Ascorbic Acid 500 MG TABLET PO SCH ×2 (08:56→20:43)
[2019-02-25] MEDS: Nystatin Ointment 15 GM TUBE TP SCH ×2 (08:56→20:43)
[2019-02-25] MEDS: Budesonide/Formoterol 160/4.5 1 PUFF INH IH SCH ×2 (10:01→21:13)
[2019-02-25] MEDS: Mirtazapine 15 MG TABLET PO SCH (20:44)
[2019-02-25] MEDS: Ipratropium/Albuterol Neb 3 ML IH PRN (21:12)
[2019-02-26] MEDS: *HR* Enoxaparin 40 MG/0.4 ML SYRINGE SQ SCH (07:00)
[2019-02-26] MEDS: Nystatin Ointment 15 GM TUBE TP SCH ×3 (08:50→20:48)
[2019-02-26] MEDS: Lactobacillus 1 EACH CAP.SPRINK PO SCH ×2 (08:50→20:49)
[2019-02-26] MEDS: Diltiazem CD (24hr) 180 MG CAPSULE PO SCH (08:50)
[2019-02-26] MEDS: Ascorbic Acid 500 MG TABLET PO SCH ×2 (08:50→20:49)
[2019-02-26] MEDS: Cholecalciferol (D-3) 1,000 UNIT (25MCG) TABLET PO SCH (08:50)
[2019-02-26] MEDS: Famotidine 20 MG TABLET PO SCH ×2 (08:50→20:48)
[2019-02-26] MEDS: Methyl Salicylate/Menthol 57 APPL/57 GM TUBE TP SCH ×3 (08:50→20:47)
[2019-02-26] MEDS: Aspirin Enteric Coated 81 MG Tablet PO SCH (08:50)
[2019-02-26] MEDS: Vitamin B Complex/Vit C/Vit E 1 EACH TABLET PO SCH (08:50)
[2019-02-26] MEDS: Budesonide/Formoterol 160/4.5 1 PUFF INH IH SCH ×2 (10:05→20:49)
[2019-02-26] MEDS: Mirtazapine 15 MG TABLET PO SCH (20:48)
[2019-02-26] MEDS: Ipratropium/Albuterol Neb 3 ML IH PRN (21:26)
[2019-02-27] MEDS: *HR* Enoxaparin 40 MG/0.4 ML SYRINGE SQ SCH (05:49)
[2019-02-27] MEDS: Vitamin B Complex/Vit C/Vit E 1 EACH TABLET PO SCH (07:46)
[2019-02-27] MEDS: Aspirin Enteric Coated 81 MG Tablet PO SCH (07:47)
[2019-02-27] MEDS: Famotidine 20 MG TABLET PO SCH (07:47)
[2019-02-27] MEDS: Lactobacillus 1 EACH CAP.SPRINK PO SCH (07:47)
[2019-02-27] MEDS: Ascorbic Acid 500 MG TABLET PO SCH (07:47)
[2019-02-27] MEDS: Cholecalciferol (D-3) 1,000 UNIT (25MCG) TABLET PO SCH (07:47)
[2019-02-27] MEDS: Diltiazem CD (24hr) 180 MG CAPSULE PO SCH (07:47)
[2019-02-27 07:48] VITALS: BP 156/79
[2019-02-27] MEDS: Nystatin Ointment 15 GM TUBE TP SCH (09:34)
[2019-02-27] MEDS: Methyl Salicylate/Menthol 57 APPL/57 GM TUBE TP SCH (09:34)
[2019-02-27] MEDS ORDERED: FLU Vac QV 19-20 (6Month+)/PF 0.5 ML SYRINGE IM ONE (10:50)
[2019-02-27] MEDS: Budesonide/Formoterol 160/4.5 1 PUFF INH IH SCH (11:33)
== END 2019-02-27 12:35 | disposition home health service (06) | DRG 945 ==
LOC: SUATTDRO 16:13 → INPGRE 16:13
PROVIDERS: ATTEND Family Medicine